=== PATIENT | male | born 1960 | race Two or more races ===

== ENCOUNTER 2017-10-06 07:35 | Outpatient (CLI) | payer OTHER | END 2017-10-06 07:41 | disposition home or self-care (01) | LOC: LAB 07:35 | DX: R93.2 Abnormal findings on diagnostic imaging of liver and biliary tract (principal); C85.90 Non-Hodgkin lymphoma, unspecified, unspecified site ==

== ENCOUNTER → 2018-01-16 | Outpatient (CLI) | payer OTHER | END | disposition home or self-care (01) | LOC: NUCLEAR 11:24 | DX: M81.0 Age-related osteoporosis without current pathological fracture (principal) ==

== ENCOUNTER → 2018-09-14 06:15 | Outpatient (CLI) | payer OTHER | END | disposition home or self-care (01) | LOC: LAB 06:15 | DX: C85.89 Other specified types of non-Hodgkin lymphoma, extranodal and solid organ sites (principal) ==

== ENCOUNTER 2019-02-17 08:15 | Outpatient (CLI) | payer OTHER | END 2019-02-17 08:24 | disposition home or self-care (01) | LOC: SONOGRAMA 08:15 | DX: R10.13 Epigastric pain (principal) ==

== ENCOUNTER 2023-01-01 12:46 | Outpatient (CLI) | payer OTHER | END 2023-01-01 12:50 | disposition home or self-care (01) | LOC: NUCLEAR 12:46 | PROVIDERS: ATTEND Internal Medicine | DX: M81.0 Age-related osteoporosis without current pathological fracture (principal) ==